=== PATIENT | male | born 2000 | race Caucasian/White ===

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

== ENCOUNTER 2020-08-08 20:22 | Emergency (ER) | payer BC, OTHER ==
--- OUTSIDE RECORDS SUMMARY | 2020-08-08 20:23 | XMS REPORT | Clinical Summary ---
:2000 Author Organization [facility] Address [address] [place] [address] Care Team Providers Name Role Phone Tanya Vega MD Primary Care Provider Allergies No Known Active Allergies Medications No known medications Active Problems Problem Noted Date Dislocation of right shoulder joint 05/14/2019 Overview: Added automatically from request for aracelis sernea [id number] Labral tear of shoulder, right, initial encounter 11/2018 Overview: Added automatically from request for araceils serena [id number] Encounters Date Type Specialty Care Team Description 10/13/2019 Office Visit Orthopedic Surgery Jimmy Leonard ral tear of shoulder, right, initial encounter (Primary Dx); MD Sami Orthopedic afte rcare 09/15/2019 Office Visit Orthopedic Surgery Jimmy Leonard ral tear of MD Sami shoulder, right , initial encount er (Primary Dx) after 08/08/2019 Surgical History Surgery Date Site/Laterality Comments TONSILLECTOMY ADENOIDECTOMY ARTHROSCOPY, SHOULDER 06/03/2019 Shoulder/Right Procedure: Right Shoulder Arthroscopic Pos terior Inferior Labral Repair; Surgeon: Jimmy Leonard MD; Location: [place] [id number] OR; Service: Orthopedics; Laterality: Righ t; Medical devices from this surgery are in the Impla nts section. Medical History Medical History Date Comments Anesthesia NHAP/NFHAP;denies ch est pain, SOB, or Dizziness Does not exercise but is active daily; can climb 2 flights of stairs Family History Medical History Relation Name Comments Heart attack Father Relation Name Status Comments Father Alive Mother Alive Social History Tobacco Use Types Packs/Day Years Used Date Never Smoker Smokeless Tobacco: Never Used Alcohol Use Drinks/Week oz/Week Comments Never Alcohol Habits Answer Date Recorded How often do you have a drink containing alcohol? Never 05/24/2019 How many drinks containing alcohol do you have on a typical Not asked day when you are drinking? How often do you have six or more drinks on one occasion? No t asked Sex Assigned at Date Recorded Not on file Last Filed Vital Signs Vital Sign Reading Time Taken Comments Blood Pressure - - Pulse 78 10/13/2019 9:03 AM [facility] [employer] ATTENDANT Temperature - - Respiratory Rate - - Oxygen Saturation - - Inhaled Oxygen Concentration - - Weight 74.8 kg (165 lb) 10/13/2019 9:03 AM [facility] ATTENDANT Height 182.9 cm (6') 10/13/2019 9:03 AM [employer] ATTENDANT Body Mass Index 22.38 10/13/2019 9:03 AM [facility] ATTENDANT Plan of Treatment Health Maintenance Due Date Last Done Comments COVID-19 VACCINE (#1) 2016 INFLUENZA VACCINE 03/11/2020 Implants Implanted Type Area Byproducts Extractor Device Shelf Model / Identifier Expiration Serial / Date Lot Corkscrew 3mmx14.5mm Biocomposite W/1.3mm Suture Tap - [id number] Surgical Right: [employer] 01/08/2021 AR 1934BCT / Implanted: 06/03/2019 at [facility] (Quantity not on file) Imp lants; Shoulder / Expanders; [id number] Extenders; Surgical Wires Corkscrew 3mmx14.5mm Biocomposite W/1.3mm Suture Tap - [id number] Surgical Right: [employer] 01/08/2021 AR 1934BCT / Implanted: 06/03/2019 at [facility] (Quantity not on file) Imp lants; Shoulder / Expanders; [id number] Extenders; Surgical Wires Corkscrew 3mmx14.5mm Biocomposite W/1.3mm Suture Tap - [id number] Surgical Right: [employer] 01/08/2021 AR 1934BCT / Implanted: 06/03/2019 at [facility] (Quantity not on file) Imp lants; Shoulder / Expanders; [id number] Extenders; Surgical Wires Results Not on fileafter 08/08/2019 Advance Directives For more information, please contact: [phone] Type Date Recorded Patient Manager Process Explanati on Advance Directives, Living 06/03/2019 10:00 AM Will and Medical Power of Senior Project Accountant
--- OUTSIDE RECORDS SUMMARY | 2020-08-08 20:23 | XMS REPORT | Continuity of Care Document ---
:2000 Author Organization [facility] t Address [address] [place] [address] Care Team Providers Name Role Phone Silvia PHILLIPS, A Primary Care Physician Aisha PHILLIPS, C. Attending Clinician Payers Payer Name Policy Type Policy Effective Date Expiration Date Sour ce Number BCBSBCBS CHOICE [id number] 2017 [place] PPO/FEDER[employer] 00:00:00 [employer] EM[employer] [id number] 2017-Prese ntPPO Problems Condition Condition Condition Status Onset Resolution Last Treating Co mments Source Name Details Category Date Date Treatment Clinician Date Dislocatio Dislocatio Disease Active 2018-08 Overview : [place] n of right n of right 0-04 Added Me thodi shoulder shoulder 00:00: automatic st joint joint 00 ally from request for surgery [id number] Labral Labral Disease Active 2018-08 Overview: Brittanie n tear of tear of 0-04 Added Methodi shoulder, shoulder, 00:00: automatic s t right, right, 00 ally from initial initial request encounter encounter for surgery [id number] Allergies, Adverse Reactions, Alerts This patient has no known allergies or adverse reactions. Family History Family Member Diagnosis Comments Start Date Stop Date Source Natural father Heart attack [place] [facility] Social History Social Habit Start Date Stop Date Quantity Comments Source History [facility] Meth odist Alcohol Std Drinks History [facility] Alcohol Binge Sex Assigned At [facility] ethodist Tobacco use and 2019-10-13 2019-10-13 Never used [facility] ethodist exposure 00:00:00 00:00:00 Alcohol intake 2019-10-13 2019-10-13 Lifetime [place] Me thodist 00:00:00 00:00:00 non-drinker (finding) History SDOH 2019-05-24 2019-05-24 1 [place] Meth odist Alcohol Frequency 00:00:00 00:00:00 Smoking Status Start Date Stop Date Source Never smoker [place] Adarshis t Medications This patient has no known medications. Vital Signs Vital Name Observation Time Observation Value Comments Source Heart rate 2019-10-13 09:03:00 78 /min [place] [facility] Body height 2019-10-13 09:03:00 182.9 cm [place] [facility] Body weight 2019-10-13 09:03:00 74.844 kg [place] [facility] BMI 2019-10-13 09:03:00 22.38 kg/m2 [place] [facility] Procedures This patient has no known procedures. Plan of Care Planned Activity Planned Date Details Comments Source Future Scheduled 2020-03-11 INFLUENZA VACCINE [place] [facility] 00:00:00 [code = INFLUENZA VACCINE] Future Scheduled 2016 COVID-19 VACCINE [place] [facility] Test 00:00:00 (#1) [code = COVID-19 VACCINE (#1)] Encounters Start End Encounter Admission Attending Care Care Encounter Source Date/Time Date/Time Type Type Clinicians Facility Department ID 2019-10-13 2019-10-13 Outpatient [facility] [id number] [place] 00:00:00 00:00:[id number] Results This patient has no known results.
[2020-08-08] MEDS ORDERED: ONDANSETRON 4 MG/2 ML VIAL ONE (21:31)
[2020-08-08] MEDS ORDERED: KETOROLAC 30 MG/ML INJ ONE (21:31)
[2020-08-08 21:40] LABS: Absolute Lymphocytes (CBC) 2.9 K/uL (0.7-4.9); Basophils % 0.6 % (0-1.3); Hematocrit 42.6 % (39.6-49.0); Lymphocytes % 33.2 % (15.3-44.8); MPV 8.4 fL (7.6-11.3); RBC Red Blood Cell Count 4.72 M/uL (4.33-5.43)
[2020-08-08 22:11] LABS: ALT/SGPT 12 U/L (12-78); AST/SGOT 14 U/L (15-37); Albumin 4.5 g/dL (3.4-5.0); Alkaline Phosphatase 50 U/L (45-117); BUN Blood Urea Nitrogen 14 mg/dL (7-18); Bicarbonate 26 mmol/L (21-32); Bilirubin Direct 0.2 mg/dL (0-0.2); Bilirubin Total 0.9 mg/dL (0.2-1.0); Glucose Level 86 mg/dL (74-106); Lipase 137 U/L (73-393); Potassium 3.5 mmol/L (3.5-5.1); Protein, Total 6.9 g/dL (6.4-8.2); Sodium Level 142 mmol/L (136-145)
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
[2020-08-09 00:27] LABS: Urine Blood NEGATIVE (NEG); Urine Glucose NEGATIVE (NEG); Urine Protein NEGATIVE (NEG); Urine Specific Gravity 1.015 (1.005-1.030)
[2020-08-09 00:29] VITALS: TEMP 97.8; O2SAT 100
[2020-08-09 00:32] VITALS: BP 132/70
--- NOTE | 2020-08-09 07:58 | RAD REPORT ---
EXAM DESCRIPTION: RAD - Forearm Right - 08/08/2020 9:49 pm CLINICAL HISTORY: Right arm pain FINDINGS: No fracture is seen.
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
== END 2020-08-08 23:34 | disposition home or self-care (01) ==
LOC: ER 20:22
DX: S20.211A Contusion of right front wall of thorax, initial encounter (principal); S20.212A Contusion of left front wall of thorax, initial encounter; S50.11XA Contusion of right forearm, initial encounter; V49.40XA Driver injured in collision with unspecified motor vehicles in traffic accident, initial encounter
CPT/HCPCS: 85025; 80048; 36415; 80076; 81003; 83690; 70450; 72125; 71260; 74177; 73090; 96375; 96374; 99285; Q9967; J2405; G0390